=== PATIENT | male | born 1960 ===

== ENCOUNTER 2024-01-25 08:00 | Day surgery (SDC) | payer BC ==
[2024-01-25] VITALS (9 sets, daily range): BP systolic 103–130; BP diastolic 62–78
[~2024-01-25] VITALS: Ht 172.7 cm; Wt 115.0 kg
[~2024-01-25 08:00] MED LIST: LISI20 PO; METF500 PO; SKYRIZI PE150 MG/1 M SC; TRULICITY1.5 MG/0.1; ZOCOR20 MG PO
[2024-01-25] MEDS ORDERED: Lactated Ringer's 1,000 ML IV SCH (08:15)
[2024-01-25] MEDS ORDERED: METF500 PO (08:17)
--- NOTE | 2024-01-25 08:26 | NUR ---
Ambulatory in Day Surgery History, Chart, Medications and Allergies reviewed before start of procedure. Pre-Op teaching done. Pt verbalizes understanding. Patient States Post-Procedure ride home has been arranged.
[2024-01-25] MEDS ORDERED: Bupivacaine 0.5% HCl 5 MG/ML 30MLVIAL ONE (09:49)
[2024-01-25] MEDS ORDERED: Rocuronium Bromide 10 MG/ML 5ML Injection IV ONE (10:02)
[2024-01-25] MEDS ORDERED: propofoL 20 ML IV ONE (10:02)
[2024-01-25] MEDS ORDERED: Ondansetron HCl 2 MG / ML 2ML Vial ONE (10:02)
[2024-01-25] MEDS ORDERED: Dexamethasone Sod Phos 10 MG/ML 1ML VIAL ONE (10:02)
[2024-01-25] MEDS ORDERED: Lidocaine HCl 2% 20 ML MDV ONE (10:02)
[2024-01-25] MEDS ORDERED: HYDROmorphone HCl/Pf 1MG SYR ONE (10:02)
[2024-01-25] MEDS ORDERED: FentaNYL Citrate 50 MCG/ML 5 ML Injection ONE (10:02)
[2024-01-25] MEDS ORDERED: Ketorolac Tromethamine 30mg Vial ONE (10:40)
[2024-01-25] MEDS ORDERED: Phenylephrine HCl 100 MCG/ML-NS 10MLSYR (1MG/10ML) ONE ×2 (10:57→10:58)
[2024-01-25] MEDS ORDERED: Glycopyrrolate 0.2 MG/ML 5ML VIAL ONE (11:20)
[2024-01-25] MEDS ORDERED: Neostigmine Methylsulfate 5MG/5ML SYR ONE (11:20)
[2024-01-25] MEDS ORDERED: HYDROcodone 5-APAP 325 TAB PO PRN (12:05)
--- NOTE | 2024-01-25 12:06 | NUR ---
PT CBG 132
--- NOTE | 2024-01-25 12:52 | NUR ---
Discharge instructions reviewed with patient. Patient verbalizes understanding. Copy given to patient to take home. Prescription sent electronically to [facility]. Dressing x5 c/d/i. Patient States Post-Procedure ride home has been arranged. Discharged via wheelchair to private car for ride home.
== END 2024-01-25 13:05 | disposition home or self-care (01) ==
LOC: ORSCMMR 08:00 → ORD 10:45 → ORSCMMR 13:05
PROVIDERS: Surgery
PROC: 0WUF4JZ Supplement Abdominal Wall with Synthetic Substitute, Percutaneous Endoscopic Approach (ICD-10-PCS; principal; 2024-01-25 10:45)
DX: K42.0 Umbilical hernia with obstruction, without gangrene (principal); I10 Essential (primary) hypertension; G47.33 Obstructive sleep apnea (adult) (pediatric); E78.00 Pure hypercholesterolemia, unspecified; Z79.84 Long term (current) use of oral hypoglycemic drugs; Z79.899 Other long term (current) drug therapy
CPT/HCPCS: 82947; A9270; C1781; J1100; J1170; J1885; J2371; J2405; J2704; J2710; J3010; J7120